=== PATIENT | male | born 1980 | race Caucasian/White ===

== ENCOUNTER 2017-02-04 20:08 | Emergency (ER) | payer MEDICARE, MEDICAID ==
[2017-02-04 20:11] VITALS: BP 146/77; PULSE 83; RESP 16; TEMP 99.2; O2SAT 97
--- NOTE | 2017-02-04 21:29 | RADRPT ---
EXAM DATE/TIME: 02/04/2017 21:02 [facility] COMPARISON: No previous studies available for comparison. INDICATIONS : Fall after back and leg giving out from bending/reaching. Low back pain. MEDICAL HISTORY : None. Degenerative disc disease. SURGICAL HISTORY : None. ENCOUNTER: Initial ACUITY: 1 day PAIN SCORE: 9/10 LOCATION: Lumbar L4-5 FINDINGS: There is no acute compression fracture, spondylolisthesis or spondylolysis. Disc space narrowing is n oted at L2-3 and L5-S1. Minimal chronic compression deformities noted involving T11, T12 and L1. CONCLUSION: 1. No acute compression fracture, spondylolisthesis or spondylolysis. 2. Mild degenerative disease L2-3 and L5-S1. 3. Minimal chronic compression deformities involving T11, T12 and L1. Mark Toscano MD on February 04, 2017 at 21:24 Board Certified Radiologist. This report was verified electronically.
--- NOTE | 2017-02-04 21:29 | RADRPT ---
EXAM DATE/TIME: 02/04/2017 21:10 [facility] COMPARISON: No previous studies available for comparison. INDICATIONS : Left posterior hand pain after fall. MEDICAL HISTORY : Degenerative disc disease. SURGICAL HISTORY : None. ENCOUNTER: Initial ACUITY: 1 day PAIN SCORE: 4/10 LOCATION: Left posterior hand FINDINGS: Three view examination of the left hand demonstrates no soft tissue swelling, dislocation, or fractur e. The carpal bones appear intact. The interphalangeal and metacarpophalangeal joints are intact. Bony mineralization is normal. CONCLUSION: No acute disease. Mark Toscano MD on February 04, 2017 at 21:26 Board Certified Radiologist. This report was verified electronically.
[2017-02-04] MEDS ORDERED: PERC5TAB12 PO (22:13)
[2017-02-04] MEDS ORDERED: MOBI15TA PO (22:13)
[2017-02-04] MEDS ORDERED: KETOROLAC TROMETHAMINE 60 MG/2 ML (IM) VIAL IM ONE (22:15)
[2017-02-04] MEDS ORDERED: ORPHENADRINE INJ 60 MG/2 ML AMP IM ONE (22:15)
--- NOTE | 2017-02-04 22:16 | PD ---
HPI Chief Complaint: Back/ Neck Pain or Injury Time Seen by Provider: 22:00 Travel History International Travel<30 days: No Contact w/Intl Traveler<30days: No Traveled to known affect area: No History of Present Illness HPI The patient is a 36-year-old male who presents to the emergency department for low back pain. The patient states he is currently visiting from [place], [place] with his girlfriend family. The patient states he was chasing around his 3 -year-old stepdaughter when he accidentally fell. The patient states his left leg gave out, secondary to chronic back pain, and he fell backwards landing on his low back. The patient complains of low back pain that radiates from the left to the right aspect and occasionally goes down the left leg. He does have a history of previous herniated disc. He denies any loss of consciousness or neck pain. He does complain of left hand pain. The patient denies any urinary incontinence or fecal incontinence. The patient states he normally takes Percocet for his pain, however, left his Percocet in [place]. Symptoms are mild to moderate, exacerbated after falling, however, there is a chronic component. There are no current alleviating factors. PFSH Past Medical History Medical other: Yes (chronic back pain) Tetanus Vaccination: < 5 Years Influenza Vaccination: No Past Surgical History Appendectomy: Yes Other Surgery: Yes (left clavicle repair titanium plate, rt sholder labrum repair) Social History Alcohol Use: No Tobacco Use: Yes (03/07 ppd) Substance Use: No Allergies-Medications (Allergen,Severity, Reaction): Coded Allergies: cyclobenzaprine (Verified Allergy, Unknown, repiratory issues, 02/04/17) rash, itchy gabapentin (Verified Allergy, Unknown, 02/04/17) morphine (Verified Allergy, Unknown, 02/04/17) orphenadrine (Verified Allergy, Unknown, Hives, 02/04/17) respiratory issues Reported Meds & Prescriptions Reported Meds & Active Scripts Active Reported Mobic (Meloxicam) 15 Mg Tab 15 Mg PO DAILY Percocet (Oxycodone-Acetaminophen) 5-325 mg Tab 1 Tab PO Q6H PRN Review of Systems Except as stated in HPI: all other systems reviewed are Neg General / Constitutional: No: Fever HENT: No: Headaches, Neck Pain Cardiovascular: No: Chest Pain or Discomfort Respiratory: No: Shortness of Breath Gastrointestinal: No: Nausea, Vomiting Genitourinary: No: Incontinence Musculoskeletal: Positive: Limited ROM, Pain Neurologic: No: Paresthesia, Sensory Disturbance Physical Exam Narrative GENERAL: Awake, alert, nontoxic-appearing 36-year-old male appears his stated age is in no acute respiratory distress. SKIN: Focused skin assessment warm/dry. HEAD: Atraumatic. Normocephalic. NECK: Trachea midline. No JVD. GASTROINTESTINAL: Abdomen soft, non-tender, nondistended. MUSCULOSKELETAL: Positive straight leg bilaterally at at 45. The patient is able flex the hips and knees bilaterally. Patient has mild ecchymosis over the extensor surface of the left hand over the second metacarpal. Full range of motion noted with flexion at the wrist, MCP, PIP, DIP. Positive pulses. Back: Mild tenderness of the sacroiliac and mid lumbar region, but no gross deformity noted. NEUROLOGICAL: Awake and alert. No obvious cranial nerve deficits. Motor grossly within normal limits. Normal speech. Sensation is symmetric bilaterally the lower extremities. PSYCHIATRIC: Appropriate mood and affect; insight and judgment normal. Data Data Last Documented VS Vital Signs Date Time Temp Pulse Resp B/P (MAP) Pulse Ox O2 Delivery O2 Flow Rate FiO2 02/04/17 20:11 99.2 83 16 146/77 (100) 97 Room Air Orders Orders Hand, Complete ([id number]) (02/04/17 ) Spine, Lumbar - Ltd (Ap & Lat) (02/04/17 ) Ketorolac Inj (Toradol Inj) (02/04/17 22:15) Orphenadrine Inj (Norflex Inj) (02/04/17 22:15) MDM Medical Decision Making Medical Screen Exam Complete: Yes Emergency Medical Condition: Yes Medical Record Reviewed: Yes Interpretation(s) Last Impressions Lumbar Spine X-Ray 02/04/17 0000 Signed Impressions: Service Date/Time: Saturday, February 04, 2017 21:02 - CONCLUSION: 1. No acute compression fracture, spondylolisthesis or spondylolysis. 2. Mild degenerative disease L2-3 and L5-S1. 3. Minimal chronic compression deformities involving T11, T12 and L1. Mark Toscano MD Hand X-Ray 02/04/17 0000 Signed Impressions: Service Date/Time: Saturday, February 04, 2017 21:10 - CONCLUSION: No acute disease. Mark Toscano MD Differential Diagnosis Differential diagnosis includes includes fracture, sprain, strain, chronic pain , spinal stenosis, herniated disc, drug-seeking behavior. Narrative Course Initially the patient was ordered Toradol and Norflex for pain IM. However, he then remembered that he has an allergy to muscle relaxers including Norflex and Flexeril. Therefore, the patient was only administered Toradol and will be discharged home with ibuprofen. I'm not going to refill the patient's narcotics. X-rays of the lumbar spine and left hand were obtained in triage, were negative for any acute pathology. He is stable for outpatient follow-up. Diagnosis Primary Impression: Low back pain Qualified Codes: M54.42 - Lumbago with sciatica, left side Patient Instructions: General Instructions Additional Instructions: Medications as directed. No heavy lifting. Stretching exercises daily. Follow -up with your primary physician. You may benefit from outpatient physical therapy. Med/Other Pt SpecificInfo: Prescription(s) given Scripts Ibuprofen (Ibuprofen) 600 Mg Tab 600 MG PO Q6H Y for Pain/Inflammation, #20 TAB 0 Refills Prov: Jose C Keyes MD 02/04/17 Disposition: 01 DISCHARGE HOME Condition: Stable Jose C Keyes MD Feb 04, 2017 22:16
[2017-02-04] MEDS ORDERED: IBUP-232 PO (22:27)
== END 2017-02-04 22:59 | disposition home or self-care (01) ==
LOC: NEPD 20:08
DX: M54.42 Lumbago with sciatica, left side (principal); G89.29 Other chronic pain; M79.605 Pain in left leg; M79.642 Pain in left hand; M51.36 Other intervertebral disc degeneration, lumbar region; M51.37 Other intervertebral disc degeneration, lumbosacral region; F17.200 Nicotine dependence, unspecified, uncomplicated; Z79.899 Other long term (current) drug therapy; Z88.5 Allergy status to narcotic agent
CPT/HCPCS: 72100; 73130; 96372; 99284; J1885